=== PATIENT | male | born 1960 | race Caucasian/White ===

== ENCOUNTER → 2019-06-22 00:01 | Outpatient (BNVA) | payer OTHER, SELFPAY | PROVIDERS: PCP Nurse Practitioner Family; Visit Provider Nurse Practitioner Family | DX: J40 Bronchitis, not specified as acute or chronic (principal) | CPT/HCPCS: 71046 ==

== ENCOUNTER → 2021-03-24 10:30 | Outpatient (BNVA) | payer OTHER, SELFPAY | PROVIDERS: PCP Nurse Practitioner Family; Visit Provider Nurse Practitioner Family | DX: Z20.822 Contact with and (suspected) exposure to COVID-19 (principal) | CPT/HCPCS: 87635 ==

== ENCOUNTER 2023-06-29 11:07 | Emergency (ER) | payer OTHER, SELFPAY ==
[2023-06-29] VITALS (10 sets, daily range): BP systolic 116–153; BP diastolic 64–76; PULSE 15–53; RESP 11–22; TEMP 36.4; O2SAT 93–99; BMI 33.5
--- NOTE | 2023-06-29 11:12 | W.ED.SOB ---
HPI - SOB/Dyspnea General: Chief Complaint: Shortness of Breath/Dyspnea Stated Complaint: sob Time Seen by Provider: 06/29/23 11:11 History of Present Illness: HPI Narrative: 63-year-old male presents the emergency department with his significant other. Patient states that he woke up this morning and states that he just did not feel right. His significant other states that he appears much more lethargic today. She states that he has a history of vertigo and has difficulty ambulating when he has a flareup of his vertigo but that is not the case today. The patient states that he has significant increased pressure in his head and feels like he is having trouble staying awake. He states he does have a history of hypertension and high cholesterol and has been taking his medications as prescribed. He states he also has pain in the left side of his chest that he describes as a pressure/tightness that was a 4 out of 10 and radiated to his right arm. He does endorse feeling diaphoretic when he awoke this morning and also states that he felt nauseated which has subsided at present. He does endorse intermittent nonproductive cough for the previous 1 day. Associated symptoms: Reports chest pain and nausea Review of Systems General: Reports: 10 or more systems reviewed and unremarkable except in HPI and below Const: Reports: fatigue and malaise Card: Reports: chest pain and other (Diaphoresis) GI: Reports: nausea Neuro: Reports: headache(s) and other (Lethargy) [facility] PFSH: Social History Smoking and tobacco/nicotine status: never used tobacco/nicotine Alcohol intake: never Lives independently: Yes Household members: spouse Marital status: Physical Exam Narrative: EXAM NARRATIVE: Constitutional: the patient appears well nourished and with normal development. Vital signs reviewed as documented. HENMT: Normocephalic, atraumatic. External ears with normal appearance without drainage. Nose without drainage, normal appearance. Mucus membranes moist. Neck is supple, No jugular venous distension, trachea is midline, no appreciable carotid bruits. No lymphadenopathy. No meningeal signs. Flexion, extension and lateral rotation is without pain. Eyes: Pupils are equal, round, reactive to light and accommodation. No scleral icterus. Extra-ocular movement are intact. Thorax is symmetrical and with equal rise and fall with respirations. Resp: Lungs are clear to auscultation. No wheezes, rales, crackles or ronchi at present. Cardio: Regular rate and rhythm. Positive S1, S2. No appreciable murmurs, rubs or gallops. GI: Abdominal exam reveals normal bowel sounds to all quadrants. No organomegaly. No obvious palpable masses noted. No hepatomegally appreciated. Soft, nontender to palpation. Extremity: Extremities are non-edematous and both femoral and pedal pulses are 2+ and equal bilaterally. Moves all extremities well, sensation in all extremities. Neuro: Alert and oriented x4, person, place, time and situation. Cranial nerves II through XII are grossly intact, there is no focal neurological deficits that I can appreciate at present. Motor strength in the upper and lower extremities are equal and bilateral 5/5. Psych: Cooperative, calm, normal thought process, appropriate judgment. Skin: No lesions, rashes. No gross abnormalities noted. Back: Symmetrical, no obvious deformity, No CVA tenderness Course Vital Signs: Vital signs: Vital Signs Temperature 97.5 F L 06/29/23 14:44 Pulse Rate 50 L 06/29/23 14:44 Respiratory Rate 18 06/29/23 14:44 Blood Pressure 124/64 06/29/23 14:44 Pulse Oximetry 95 06/29/23 14:44 Oxygen Delivery Me thod Room Air 06/29/23 14:30 MDM - SOB/Dyspnea Medical Decision Making 63-year-old male presents emergency department with complaints of lethargy and chest pain started this morning. We will obtain cardiac enzymes as well as serial EKGs a chest x-ray, given his history of disequilibrium and his increased lethargy I will obtain a CT scan of his head as he does complain of a headache. We will obtain a CBC, CMP, influenza, and COVID screen. NIH Stroke Scale/Score (NIHSS) on 06/29/2023 RESULT SUMMARY: 0 points NIH Stroke Scale INPUTS: 1A: Level of consciousness ?> 0 = Alert; keenly responsive 1B: Ask month and age ?> 0 = Both questions right 1C: 'Blink eyes' & 'squeeze hands' ?> 0 = Performs both tasks 2: Horizontal extraocular movements ?> 0 = Normal 3: Visual miller ?> 0 = No visual loss 4: Facial palsy ?> 0 = Normal symmetry 5A: Left arm motor drift ?> 0 = No drift for 10 seconds 5B: Right arm motor drift ?> 0 = No drift for 10 seconds 6A: Left leg motor drift ?> 0 = No drift for 5 seconds 6B: Right leg motor drift ?> 0 = No drift for 5 seconds 7: Limb Ataxia ?> 0 = No ataxia 8: Sensation ?> 0 = Normal; no sensory loss 9: Language/aphasia ?> 0 = Normal; no aphasia 10: Dysarthria ?> 0 = Normal 11: Extinction/inattention ?> 0 = No abnormality Medical Records I reviewed the patient's medical records. Lab Data I reviewed the patient's lab results. 06/29/23 11:30 06/29/23 12:59 Labs/Radiology: Radiology Impressions Chest X-Ray 06/29/23 11:13 IMPRESSION: No acute findings. Head CT 06/29/23 12:18 IMPRESSION: No acute intracranial abnormality. Laboratory Results WBC 7.26 10^3/uL (3.29-11.43) 06/29/23 11:30 RBC 4.91 10^6/uL (3.85-5.65) 06/29/23 11:30 Hgb 15.10 g/dL (11.27-16.99) 06/29/23 11:30 Hct 42.6 % (37-53) 06/29/23 11:30 MCV 86.8 fl (82-101) 06/29/23 11:30 MCH 30.8 pg (27-33) 06/29/23 11:30 MCHC 35.4 g/dL (30-55) 06/29/23 11:30 RDW 12.0 % (12.1-15.1) L 06/29/23 11:30 Plt Count 222 10^3/cmm (157-399) 06/29/23 11:30 MPV 12.9 fL (7.4-10.4) H 06/29/23 11:30 Neut % (Auto) 55.7 % 06/29/23 11:30 Lymph % (Auto) 36.9 % 06/29/23 11:30 [place] % (Auto) 5.2 % 06/29/23 11:30 Eos % (Auto) 1.1 % 06/29/23 11:30 Baso % (Auto) 1.0 % 06/29/23 11:30 Neut # (Auto) 4.04 10^3/uL (1.8-7.7) 06/29/23 11:30 Lymph # (Auto) 2.7 10^3/uL (0.8-4.8) 06/29/23 11:30 [place]th # (Auto) 0.4 10^3/uL (0.2-0.9) 06/29/23 11:30 Eos # (Auto) 0.1 10^3/uL (0.0-0.8) 06/29/23 11:30 Baso # (Auto) 0.1 10^3/uL (0.0-0.1) 06/29/23 11:30 Nucleated RBC % (auto) 0 % 06/29/23 11:30 Nucleated RBCs # 0.0 /100WBC 06/29/23 11:30 PT 13.40 SECONDS (12.1-14.9) 06/29/23 12:59 INR 0.99 (0.8-1.2) 06/29/23 12:59 Sodium 138 mmol/L (136-145) 06/29/23 12:59 Potassium 3.5 mmol/L (3.5-5.1) 06/29/23 12:59 Chloride 102 mmol/L (98-107) 06/29/23 12:59 Carbon Dioxide 26 mmol/L (22-29) 06/29/23 12:59 Anion Gap 13.5 (5-19) 06/29/23 12:59 BUN 11 mg/dL (8-23) 06/29/23 12:59 Creatinine 0.7 mg/dL (0.7-1.2) 06/29/23 12:59 GFR Calculation 113.5 mL/min (90-130) 06/29/23 12:59 Glucose 116 mg/dL (65-115) H 06/29/23 12:59 Calculated Osmolality 286 mOsm/kg (285-295) 06/29/23 12:59 Calcium 9.5 mg/dL (8.5-10.5) 06/29/23 12:59 Total Bilirubin 0.5 mg/dL (0.15-1.2) 06/29/23 12:59 AST 25 U/L (0-40) 06/29/23 12:59 ALT 25 U/L (0-41) 06/29/23 12:59 Alkaline Phosphatase 64 U/L (40-130) 06/29/23 12:59 Troponin T Baseline 10 ng/L (0-15) 06/29/23 12:59 NT-Pro-B Natriuret Pep 131 pg/mL (0-125) H 06/29/23 12:59 Total Protein 6.6 g/dL (6.6-8.7) 06/29/23 12:59 Albumin 4.0 g/dL (3.5-5.2) 06/29/23 12:59 Globulin 2.6 g/dL (1.3-4.6) 06/29/23 12:59 Urine Color Yellow (Yellow) 06/29/23 13:21 Urine Appearance Clear (CLEAR) 06/29/23 13:21 Urine pH 8 (5-7) H 06/29/23 13:21 Ur Specific [place] 1.015 (1.005-1.030) 06/29/23 13:21 Urine Protein Neg (Negative) 06/29/23 13:21 Urine Glucose (UA) Norm (Normal) 06/29/23 13:21 Urine Ketones Negative (Negative) 06/29/23 13:21 Urine Blood Neg (Negative) 06/29/23 13:21 Urine Nitrate Negative (Negative) 06/29/23 13:21 Urine Bilirubin Neg (Negative) 06/29/23 13:21 Prot Sulfosalicylic Acd Negative (Negative) 06/29/23 13:21 Urine Urobilinogen Norm mg/dL (Negative) 06/29/23 13:21 Ur Leukocyte Esterase Negative (Negative) 06/29/23 13:21 Urine RBC None /hpf (0-2) 06/29/23 13:21 Urine WBC None /hpf (0-5) 06/29/23 13:21 Ur Squamous Epith Cells None /hpf (0-5) 06/29/23 13:21 Amorphous Sediment Not Reportable 06/29/23 13:21 Urine Bacteria None /hpf (NONE) 06/29/23 13:21 Urine Opiates Screen Negative ng/mL (Negative) 06/29/23 13:21 Ur Barbiturates Screen Negative ng/mL (Negative) 06/29/23 13:21 Ur Phencyclidine Scrn Negative ng/mL (Negative) 06/29/23 13:21 Ur Amphetamines Screen Negative ng/mL (Negative) 06/29/23 13:21 U Benzodiazepines Scrn Negative ng/mL (Negative) 06/29/23 13:21 Urine Cocaine Screen Negative ng/mL (Negative) 06/29/23 13:21 U Marijuana (THC) Screen Negative ng/mL (Negative) 06/29/23 13:21 Influenza Type A Ag negative (Negative) 06/29/23 11:48 Influenza Type B Ag negative (Negative) 06/29/23 11:48 SARS-CoV-2 Ag (Rapid) negative (Negative) 06/29/23 11:48 All radiology interpretation(s) finalized by discharge EKG Data EKG 1: Interpretation: Twelve-lead EKG obtained at 1115 and reviewed at 1120 demonstrates sinus bradycardia with a ventricular rate of 50 bpm, WV interval 164, QRS duration 93, QT 451, QTc 424. There is no ST elevation or depression to demonstrate acute ischemia or infarction at present. Discharge Plan Discharge Patient Disposition: Home Clinical Impression: Viral upper respiratory illness, Angina pectoris, Bradycardia Condition: Stable Prescriptions: New guaifenesin 1,200 mg tablet extended release 12hr 1,200 mg PO BID Qty: 14 0RF prednisone 20 mg tablet 40 mg PO DAILY 5 Days Qty: 10 0RF albuterol sulfate 90 mcg/actuation HFA aerosol inhaler 2 inh inhalation Q6H PRN (Reason: shortness of breath or wheezing) Qty: 8.5 0RF benzonatate 200 mg capsule 200 mg PO TID Qty: 30 0RF No Action zinc acetate 25 mg (zinc) Capsule 25 mg PO DAILY atorvastatin 10 mg tablet 10 mg PO DAILY losartan-hydrochlorothiazide 100-25 mg tablet 1 tab PO DAILY Vitamin C 250 mg Tablet 250 mg PO BID Zyrtec 10 mg Capsule 10 mg PO DAILY PRN (Reason: Allergy Symptoms) Vascepa 1 gram capsule 2 g PO BID Discharge Orders: Discharge ED (Routine); Ordered 06/29/23 Ordered By: Melchor Medina Referrals: Kelli Castañeda MD [Primary Care Provider] - Discharge Diet: Advance as tolerated Discharge Activity: Resume usual activity Patient Instructions: Opioid Safety, Pain Management Activity Restrictions/Additional Instructions: Activity Restrictions/Additional Instructions: Thank you for choosing [facility] for your healthcare needs today. Please realize that you were seen in the Emergency Department and that we are providing you with an emergency medical screening exam and this may not be a complete and all inclusive of all the testing and or medical work-up that you may need to determine your ailment or severity of your illness. It is very important that you follow-up as instructed with your Primary care provider or Specialist for additional evaluation and to discuss your medical treatment plan. You may return to the Emergency Department should you have concerns or if your condition changes or worsens in any way. Coding Level of Care Code ED Hydramatic Mechanic for Paula Sánchez
--- NOTE | 2023-06-29 11:13 | XRR_ITS ---
PROCEDURE INFORMATION: Exam: XR Chest Exam date and time: 06/29/2023 11:39 AM Age: 63 years old Clinical indication: Patient HX: Dyspnea; HX HTN TECHNIQUE: Imaging protocol: Radiologic exam of the chest. Views: 1 view. COMPARISON: CR XR chest 2V* [id number] 06/22/2019 7:42 AM FINDINGS: Lungs: Unremarkable. No consolidation. Pleural spaces: Unremarkable. No pleural effusion. No pneumothorax. Heart/Mediastinum: Unremarkable. No cardiomegaly. Bones/joints: Unremarkable. XR/XR chest 1V portable [id number] IMPRESSION: No acute findings.
--- NOTE | 2023-06-29 11:15 | ECG_ITS ---
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 Measurements Intervals [place] Rate: 50 P: 44 NC: 164 QRS: 57 QRSD: 93 T: 45 QT: 451 QTc: 413 Interpretive Statements SINUS BRADYCARDIA No previous ECG available for comparison Electronically Signed On 07-01-2023 7:57:09 MACHINE GUN MECHANIC by Angelito Bowman M.D. [id number]
[2023-06-29 11:57] LABS: Basophils # 0.1 10^3/uL (0.0-0.1); Eosinophils # 0.1 10^3/uL (0.0-0.8); Eosinophils % 1.1 %; Hematocrit 42.6 % (37-53); Lymphocytes # 2.7 10^3/uL (0.8-4.8); Lymphocytes % 36.9 %; Mean Corpuscular HGB Conc 35.4 g/dL (30-55); Mean Corpuscular Hemoglobin 30.8 pg (27-33); Mean Corpuscular Volume 86.8 fl (82-101); Mean Platelet Volume 12.9 fL (7.4-10.4); Monocytes # 0.4 10^3/uL (0.2-0.9); Monocytes % 5.2 %; Neutrophils # 4.04 10^3/uL (1.8-7.7); Neutrophils % 55.7 %; Nucleated Red Blood Cells % 0 %; Platelet Count 222 10^3/cmm (157-399); Red Blood Count 4.91 10^6/uL (3.85-5.65); White Blood Count 7.26 10^3/uL (3.29-11.43)
--- NOTE | 2023-06-29 12:18 | CTR_ITS ---
PROCEDURE INFORMATION: Exam: CT Head Without Contrast Exam date and time: 06/29/2023 12:32 PM Age: 63 years old Clinical indication: Alteration of consciousness; Transient alteration of awareness; Additional info: Lethergy/decreased mental status TECHNIQUE: Imaging protocol: Computed tomography of the head without contrast. Radiation optimization: All CT scans at this facility use at least one of these dose optimization techniques: automated exposure control; mA and/or kV adjustment per patient size (includes targeted exams where dose is matched to clinical indication); or iterative reconstruction. COMPARISON: No relevant prior studies available. RADIATION DOSE METRICS: Total DLP (mGy-cm): 1029.84 FINDINGS: Brain: Normal. No hemorrhage. Unremarkable white matter. No mass effect. Cerebral ventricles: No ventriculomegaly. Paranasal sinuses: See Bones/joints finding. Mastoid air cells: Visualized mastoid air cells are well aerated. Bones/joints: Mucosal thickening and slight fluid in the maxillary, ethmoid, frontal, and sphenoid sinuses. Soft tissues: Unremarkable. CT/CT head wo con* [id number] IMPRESSION: No acute intracranial abnormality.
[2023-06-29 12:27] LABS: Influenza A by IFA negative (Negative); Influenza B by IFA negative (Negative); SARS Covid-2 Antigen negative (Negative)
--- NOTE | 2023-06-29 13:19 | ECG_ITS ---
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 Measurements Intervals [place] Rate: 50 P: 39 MI: 172 QRS: 53 QRSD: 95 T: 42 QT: 473 QTc: 432 Interpretive Statements SINUS BRADYCARDIA WITH OCCASIONAL VENTRICULAR PREMATURE COMPLEXES Compared to ECG 06/29/2023 11:15:05 Ventricular premature complex(es) now present Electronically Signed On 07-01-2023 8:05:18 NAILHEAD PUNCHER by Angelito Bowman M.D. [id number]
[2023-06-29 13:46] LABS: Bilirubin Urine Neg (Negative); Blood Urine Neg (Negative); Glucose Urine UA Norm (Normal); Ketones Urine Negative (Negative); Leukocyte Esterase Urine Negative (Negative); Nitrate Urine Negative (Negative); Protein Urine Neg (Negative); Specific Gravity, Urine 1.015 (1.005-1.030); Urine Appearance Clear (CLEAR); Urine Color Yellow (Yellow); Urobilinogen Urine Norm (Negative); pH Urine 8 (5-7)
[2023-06-29 13:50] LABS: INR 0.99 (0.8-1.2)
[2023-06-29 13:52] LABS: Amphetamines Screen Urine Negative (Negative); Barbiturates Screen Urine Negative (Negative); Benzodiazepines Screen Urine Negative (Negative); Cocaine Screen Urine Negative (Negative); Opiate Screen Urine Negative (Negative); PCP Screen Urine Negative (Negative); THC Screen Urine Negative (Negative)
[2023-06-29 13:58] LABS: Sulfosalicylic Acid Urine Negative (Negative)
[2023-06-29 14:04] LABS: Troponin(5th) Baseline 10 ng/L (0-15)
[2023-06-29 14:13] LABS: Alanine Aminotransferase 25 U/L (0-41); Alkaline Phosphatase 64 U/L (40-130); Anion Gap 13.5 (5-19); Aspartate Amino Transferase 25 U/L (0-40); Blood Urea Nitrogen 11 mg/dL (8-23); Calcium 9.5 mg/dL (8.5-10.5); Carbon Dioxide 26 mmol/L (22-29); Chloride 102 mmol/L (98-107); Globulin 2.6 g/dL (1.3-4.6); Glomerular Filtration Rate 113.5 mL/min (90-130); Glucose 116 mg/dL (65-115); NT Pro B Type Natriuretic Pept 131 pg/mL (0-125); Osmolality Calculated 286 mOsm/kg (285-295); Potassium 3.5 mmol/L (3.5-5.1); Sodium 138 mmol/L (136-145); Total Bilirubin 0.5 mg/dL (0.15-1.2); Total Protein 6.6 g/dL (6.6-8.7)
== END 2023-06-29 14:45 | disposition home or self-care (01) ==
PROVIDERS: Emergency Provider Internal Medicine; PCP Family Medicine
DX: J06.9 Acute upper respiratory infection, unspecified (principal); I20.9 Angina pectoris, unspecified; R00.1 Bradycardia, unspecified; Z11.52 Encounter for screening for COVID-19
CPT/HCPCS: 36415; 70450; 71045; 80053; 80306; 81001; 83880; 84484; 85025; 85610; 87426; 87804; 93005; 99285

== ENCOUNTER 2024-05-24 18:00 | Emergency (ER) | payer OTHER, MEDICARE, SELFPAY ==
--- NOTE | 2024-05-24 18:02 | ECG_ITS ---
[facility] Test Date: 2024-05-24 Pat Name: Niko Faith Department: Room: Gender: Male Ammunition Specialist: : 1960 Requested By: Eve Argueta Order Number: [id number] Reading MD: BO LAU Measurements Intervals [place] Rate: 96 P: 52 CT: 166 QRS: 66 QRSD: 98 T: 16 QT: 344 QTc: 435 Interpretive Statements SINUS RHYTHM Compared to ECG 06/29/2023 13:19:20 Sinus bradycardia no longer present Ventricular premature complex(es) no longer present Electronically Signed On 05-25-2024 16:07:51 INSURANCE LOSS CONTROL SURVEYOR by BO LAU [id number]
--- NOTE | 2024-05-24 18:02 | XRR_ITS ---
PROCEDURE INFORMATION: Exam: XR Chest Exam date and time: 05/24/2024 6:27 PM Age: 64 years old Clinical indication: Chest pressure; Patient HX: C/O chest pain; Additional info: Cp TECHNIQUE: Imaging protocol: Radiologic exam of the chest. Views: 1 view. COMPARISON: CR XR chest 1V portable [id number] 06/29/2023 11:39 AM FINDINGS: Lungs: Left basilar opacities. Pleural spaces: Unremarkable. No pleural effusion. No pneumothorax. Heart/Mediastinum: Unremarkable. No cardiomegaly. Bones/joints: Unremarkable. XR/XR chest 1V portable [id number] IMPRESSION: Left basilar opacities favor atelectasis.
[2024-05-24 18:08] VITALS: BP 126/72; PULSE 92; RESP 18; TEMP 36.7; O2SAT 98; BMI 34.7
[2024-05-24 18:38] LABS: Basophils # 0.1 10^3/uL (0.0-0.1); Basophils % 0.3 %; Lymphocytes # 1.3 10^3/uL (0.8-4.8); Mean Corpuscular HGB Conc 35.4 g/dL (30-55); Mean Corpuscular Hemoglobin 30.2 pg (27-33); Mean Corpuscular Volume 85.4 fl (82-101); Mean Platelet Volume 10.1 fL (7.4-10.4); Monocytes # 0.5 10^3/uL (0.2-0.9); Monocytes % 3.1 %; Neutrophils # 14.04 10^3/uL (1.8-7.7); Neutrophils % 88.2 %; Nucleated Red Blood Cells % 0 %; Platelet Count 192 10^3/cmm (157-399); Red Cell Distribution Width 11.7 % (12.1-15.1); White Blood Count 15.91 10^3/uL (3.29-11.43)
[2024-05-24 19:05] LABS: Alanine Aminotransferase 37 U/L (0-41); Albumin Level 4.1 g/dL (3.5-5.2); Alkaline Phosphatase 59 U/L (40-130); Anion Gap 15.4 (5-19); Aspartate Amino Transferase 29 U/L (0-40); Blood Urea Nitrogen 13 mg/dL (8-23); Calcium 9.6 mg/dL (8.5-10.5); Carbon Dioxide 25 mmol/L (22-29); Chloride 100 mmol/L (98-107); Creatinine Clr Calc Pharmacy 88.6017; Globulin 2.5 g/dL (1.3-4.6); Glucose 201 mg/dL (65-115); Lipase 23 U/L (13-60); Osmolality Calculated 290 mOsm/kg (285-295); Potassium 3.4 mmol/L (3.5-5.1); Sodium 137 mmol/L (136-145); Total Bilirubin 0.5 mg/dL (0.15-1.2); Total Protein 6.6 g/dL (6.6-8.7)
[2024-05-24 19:07] LABS: INR 0.96 (0.8-1.2); Troponin(5th) Baseline 16 ng/L (0-15)
[2024-05-24] MEDS: aspirin 81 mg Chew Tablet 324 MG PO (19:08)
[2024-05-24 19:10] LABS: D Dimer 0.64 ug/mLFEU (0-0.59)
[2024-05-24] MEDS: ondansetron 2 mg/ML SDV 2 mL 4 MG IVP (19:10)
[2024-05-24 19:13] VITALS: RESP 18; O2SAT 96
[2024-05-24] MEDS: morphine 4 mg/mL SDV 1 mL IVP (19:13)
[2024-05-24 19:14] VITALS: BP 116/67; PULSE 80; RESP 18; O2SAT 96
--- NOTE | 2024-05-24 19:17 | ED_ITS ---
HPI - Chest Pain 2 General: Chief Complaint: Chest Pain Stated Complaint: CP Time Seen by Provider: 05/24/24 18:19 History of Present Illness: 64-year-old male with no prior known his tory of coronary disease. He presents with chest discomfort radiating into his back. 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 It seemed to subside a bit after taking nitroglycerin. This evening, when he went out to load his furnace, pain return, was worse, and did not improve with nitroglycerin. His blood pressure was low at home, in the 70s systolic after taking 1 nitroglycerin he says. Blood pressure has improved now. He is diaphoretic, and having trouble breathing. Related Data Home Medications Medication Instructions Recorded Confirmed ascorbic acid (vitamin C) 250 mg 250 mg PO BID 06/29/23 07/19/23 tablet (Vitamin C) atorvastatin 10 mg tablet 10 mg PO DAILY 06/29/23 07/19/23 cetirizine 10 mg capsule (Zyrtec) 10 mg PO DAILY PRN Allergy Symptoms 06/29/23 07/19/23 icosapent ethyl 1 gram capsule 2 g PO BID 06/29/23 07/19/23 (Vascepa) losartan 100 1 tab PO DAILY 06/29/23 07/19/23 mg-hydrochlorothiazide 25 mg tablet zinc acetate 25 mg (zinc) capsule 25 mg PO DAILY 06/29/23 07/19/23 Previous Rx's Medication Instructions Recorded albuterol sulfate 90 mcg/actuation 2 inh inhalation Q6H PRN shortness 06/29/23 aerosol inhaler of breath or wheezing #8.5 grams benzonatate 200 mg capsule 200 mg PO TID Cough #30 caps 06/29/23 amoxicillin 875 mg-potassium 1 tab PO BID 10 days #20 tabs 07/19/23 clavulanate 125 mg tablet guaifenesin 1,200 mg tablet, 1,200 mg PO BID #30 tabs 07/19/23 extended release 12 hr Allergies Allergy/AdvReac Type Severity Reaction Status Date / Time No Known Allergies Allergy Verified 07/19/23 16:01 PFSH ED 2 PFSH: Social History Smoking and tobacco/nicotine status: never used tobacco/nicotine Alcohol intake: never Lives independently: Yes Household members: spouse Marital status: Physical Exam 2 Const: GENERAL APPEARANCE: cooperative; not frail appearing HENMT: COMMON NORMALS: normocephalic, atraumatic and Normal external nose present HEAD & SCALP: normocephalic and atraumatic FACE & SINUS: normal facial exam and face symmetric NOSE: Normal external nose present Eye: COMMON NORMALS: Equal, round and reactive pupils present and EOMs intact bilaterally PUPIL: Yes Equal, round and reactive pupils present Neck/C-Spine: GENERAL: Yes trachea midline Chest: CHEST: Yes Symmetrical chest wall rise Resp: COMMON NORMALS: normal respiratory effort, No retractions, No use of accessory muscles and clear to auscultation bilaterally AUSCULTATION: clear to auscultation bilaterally Cardio: COMMON NORMALS: regular rate and regular rhythm RATE: regular rate RHYTHM: regular rhythm GI: COMMON NORMALS: Normal to inspection, nondistended, normoactive bowel sounds present Extremity: COMMON NORMALS: no pedal edema Neuro: MELISSA COMA SCALE: document GCS findings [place] coma scale eye opening: Spontaneous [place] coma scale verbal response: Orientated [place] coma scale motor response: Obey commands Melissa coma scale total score: 15 S ENSORY EXAM: Yes extremities (intact) Psych: COMMON NORMALS: speech normal SPEECH: Yes normal speech Skin: COMMON NORMALS: no rashes or lesions noted GENERAL SKIN EXAM: no rashes or lesions noted Course 2 Vital Signs: Vital signs: Vital Signs Temperature 98.1 F 05/24/24 18:08 Pulse Rate 82 05/24/24 21:24 Respiratory Rate 15 05/24/24 21:24 Blood Pressure 115/62 05/24/24 21:24 Pulse Oximetry 98 05/24/24 21:24 Oxygen Delivery Me thod Room Air 05/24/24 20:29 MDM - Chest Pain Medical Decision Making EKG does not show acute ST wave change. His first troponin is 16. White blood cell count is 16. Other laboratory is not terribly remarkable. Chest x-ray shows left basilar atelectasis. D-dimer 0.64 for his age group is not terribly remarkable. Delta troponin is -1 at 2 hours. Discussed observation of this patient and cardiology consult. Discussed also with the hospitalist who is willing to observe the patient based on progressive symptoms. The patient has talked it over with his family, and is decided that he would like to be discharged given his negative delta troponin. He gets his cardiology care at [facility] in [facility], and would like to follow-up with his communications intern there. He was encouraged to stay, but we understand his preference for continuation of care. He will be allowed discharge. Lab Data 05/24/24 18:20 05/24/24 18:20 Radiology Impressions Chest X-Ray 05/24/24 18:02 IMPRESSION: Left basilar opacities favor atelectasis. Laboratory Results WBC 15.91 10^3/uL (3.29-11.43) H 05/24/24 18:20 RBC 4.80 10^6/uL (3.85-5.65) 05/24/24 18:20 Hgb 14.50 g/dL (11.27-16.99) 05/24/24 18:20 Hct 41.0 % (37-53) 05/24/24 18:20 MCV 85.4 fl (82-101) 05/24/24 18:20 MCH 30.2 pg (27-33) 05/24/24 18:20 MCHC 35.4 g/dL (30-55) 05/24/24 18:20 RDW 11.7 % (12.1-15.1) L 05/24/24 18:20 Plt Count 192 10^3/cmm (157-399) 05/24/24 18:20 MPV 10.1 fL (7.4-10.4) 05/24/24 18:20 Neut % (Auto) 88.2 % 05/24/24 18:20 Lymph % (Auto) 8.0 % 05/24/24 18:20 [place] % (Auto) 3.1 % 05/24/24 18:20 Eos % (Auto) 0.0 % 05/24/24 18:20 Baso % (Auto) 0.3 % 05/24/24 18:20 Neut # (Auto) 14.04 10^3/uL (1.8-7.7) H 05/24/24 18:20 Lymph # (Auto) 1.3 10^3/uL (0.8-4.8) 05/24/24 18:20 [place] # (Auto) 0.5 10^3/uL (0.2-0.9) 05/24/24 18:20 Eos # (Auto) 0.0 10^3/uL (0.0-0.8) 05/24/24 18:20 Baso # (Auto) 0.1 10^3/uL (0.0-0.1) 05/24/24 18:20 Nucleated RBC % (auto) 0 % 05/24/24 18:20 Nucleated RBCs # 0.0 /100WBC 05/24/24 18:20 PT 13.10 SECONDS (12.1-14.9) 05/24/24 18:20 INR 0.96 (0.8-1.2) 05/24/24 18:20 D-Dimer 0.64 ug/mLFEU (0-0.59) H 05/24/24 18:20 Sodium 137 mmol/L (136-145) 05/24/24 18:20 Potassium 3.4 mmol/L (3.5-5.1) L 05/24/24 18:20 Chloride 100 mmol/L (98-107) 05/24/24 18:20 Carbon Dioxide 25 mmol/L (22-29) 05/24/24 18:20 Anion Gap 15.4 (5-19) 05/24/24 18:20 BUN 13 mg/dL (8-23) 05/24/24 18:20 Creatinine 1.0 mg/dL (0.7-1.2) 05/24/24 18:20 GFR Calculation 75.0 mL/min (90-130) L 05/24/24 18:20 Glucose 201 mg/dL (65-115) H 05/24/24 18:20 Calculated Osmolality 290 mOsm/kg (285-295) 05/24/24 18:20 Calcium 9.6 mg/dL (8.5-10.5) 05/24/24 18:20 Total Bilirubin 0.5 mg/dL (0.15-1.2) 05/24/24 18:20 AST 29 U/L (0-40) 05/24/24 18:20 ALT 37 U/L (0-41) 05/24/24 18:20 Alkaline Phosphatase 59 U/L (40-130) 05/24/24 18:20 Troponin T Baseline 16 ng/L (0-15) H 05/24/24 18:20 Troponin T 120 Minute 14.91 ng/L (0-15) 05/24/24 20:19 Delta Troponin T -1.09 ABS# (0-10) L 05/24/24 20:19 NT-Pro-B Natriuret Pep 117 pg/mL (0-125) 05/24/24 18:20 Total Protein 6.6 g/dL (6.6-8.7) 05/24/24 18:20 Albumin 4.1 g/dL (3.5-5.2) 05/24/24 18:20 Globulin 2.5 g/dL (1.3-4.6) 05/24/24 18:20 Lipase 23 U/L (13-60) 05/24/24 18:20 All radiology interpretation(s) finalized by discharge Discharge Plan Discharge Patient Disposition: Home Clinical Impression: Chest pain Condition: Stable Prescriptions: No Action methylprednisolone acetate 40 mg/mL suspension 40 mg IM ONCE Qty: 1 0RF dexamethasone sodium phosphate 4 mg/mL solution 4 mg IM ONCE Qty: 1 0RF amoxicillin-pot clavulanate 875-125 mg tablet 1 tab PO BID 10 Days Qty: 20 0RF guaifenesin 1,200 mg tablet extended release 12hr 1,200 mg PO BID Qty: 30 0RF zinc acetate 25 mg (zinc) Capsule 25 mg PO DAILY atorvastatin 10 mg tablet 10 mg PO DAILY losartan-hydrochlorothiazide 100-25 mg tablet 1 tab PO DAILY Vitamin C 250 mg Tablet 250 mg PO BID Zyrtec 10 mg Capsule 10 mg PO DAILY PRN (Reason: Allergy Symptoms) Vascepa 1 gram capsule 2 g PO BID albuterol sulfate 90 mcg/actuation HFA aerosol inhaler 2 inh inhalation Q6H PRN (Reason: shortness of breath or wheezing) Qty: 8.5 0RF benzonatate 200 mg capsule 200 mg PO TID Qty: 30 0RF Discharge Orders: Discharge ED (Routine); Ordered 05/24/24 Ordered By: Duc Verma Referrals: Kelli Castañeda MD [Primary Care Provider] - Patient Instructions: Chest Pain (ED), Opioid Safety, Pain Management Activity Restrictions/Additional Instructions: You were seen in the emergency department for chest discomfort. You were offered admission, but chose to go home to follow-up with your communications intern. Return for any worsening pain, shortness of breath, fever, other concerning symptoms. Coding Level of Care Code ED Picking Machine Operator for Paula Sánchez
[2024-05-24 19:30] LABS: NT Pro B Type Natriuretic Pept 117 pg/mL (0-125)
--- NOTE | 2024-05-24 20:02 | ECG_ITS ---
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
[2024-05-24 20:29] VITALS: BP 131/71; PULSE 81; RESP 20; O2SAT 96
[2024-05-24 20:46] LABS: Troponin 5 2HR 14.91 ng/L (0-15)
[2024-05-24 20:47] LABS: Troponin 5 2HR Delta -1.09 ABS# (0-10)
[2024-05-24 21:24] VITALS: BP 115/62; PULSE 82; RESP 15; O2SAT 98
== END 2024-05-24 21:27 | disposition home or self-care (01) ==
PROVIDERS: Emergency Medicine; Emergency Provider Emergency Medicine; PCP Family Medicine
DX: R07.9 Chest pain, unspecified (principal)
CPT/HCPCS: 36415; 71045; 80053; 83690; 83880; 84484; 85025; 85378; 85610; 93005; 96374; 96375; 99285; J2270; J2405